=== PATIENT | male | born 1995 | race African-American/Black ===

== ENCOUNTER → 2016-06-25 | Outpatient (CLI) | payer OTHER ==
[~2016-06-25] MED LIST: AMOXICILLIN 50500 MG PO; BONINE25 MG PO; MOTRIN 800800 MG/TAB PO; PREDNISONE20 MG PO; ZOLOFT 50MG50 MG PO
== END ==
LOC: COL.PUL 07:44
DX: J01.10 Acute frontal sinusitis, unspecified (principal); R05 Cough; R06.89 Other abnormalities of breathing

== ENCOUNTER 2016-07-15 02:32 | Emergency (ER) | payer OTHER ==
[~2016-07-15] VITALS: Ht 177.8 cm; Wt 81.8 kg
[~2016-07-15 02:32] MED LIST changes: -AMOXICILLIN 50500 MG PO; -BONINE25 MG PO; -ZOLOFT 50MG50 MG PO
[2016-07-15] MEDS ORDERED: AMOXICILLIN 50500 MG PO (02:43)
[2016-07-15 02:44] VITALS: BP 156/94; TEMP 98
[2016-07-15] MEDS ORDERED: ZOLOFT 50MG50 MG PO (02:44)
[2016-07-15] MEDS ORDERED: BONINE25 MG PO (03:20)
[2016-07-15 03:37] VITALS: PULSE 62
== END 2016-07-15 03:30 | disposition home or self-care (01) ==
LOC: COL.ER 02:32
DX: H81.21 Vestibular neuronitis, right ear (principal)